=== PATIENT | male | born 1970 | race Caucasian/White ===

== ENCOUNTER 2024-04-27 16:22 | Inpatient (IN) ==
[2024-04-27] MEDS: nitroGLYCERIN DRIP 25,000 MCG/250 ML BTL IV SCH (20:43)
[2024-04-27] MEDS ORDERED: Al Hydrox/Mg Hydrox/Simet LIQ 30 ML UDC PO PRN (21:20)
[2024-04-27] MEDS ORDERED: HYDROcodone/Acetamin 10/325 TAB (NF) PO PRN ×2 (21:36→22:27)
[2024-04-27 22:37] LABS: Calcium 9.4 mg/dL (8.6-10.3); Creatinine, Serum 0.74 mg/dL (0.67-1.17); Magnesium 1.8 mg/dL (1.9-2.7); eGFR CKD-EPI 108.3 (>60)
[2024-04-27] MEDS: Heparin DRIP 25,000 UNITS BAG 25,000 UNITS/250 ML BAG IV SCH (22:46)
[2024-04-27 22:49] LABS: ABS Eosinophils 0.3 10^3/uL (0.0-0.5); ABS Lymphocytes 1.5 10^3/uL (1.0-4.8); ABS Monocytes 0.7 10^3/uL (0.0-1.1); ABS Neutrophils 2.5 10^3/uL (1.5-7.6); ABS Nucleated RBC 0.01 10^3/ul; Eosinophil % 5.2 %; Hematocrit 37.1 % (38-53); Hemoglobin 12.9 g/dL (13.2-16.3); Lymphocyte % 30.4 %; Mean Corpuscular Hemoglobin 31.3 pg (27-33); Mean Corpuscular Hgb Conc 34.9 g/dL (31-36); Mean Corpuscular Volume 89.9 fL (80-97); Mean Platelet Volume 7.8 fL (7.5-11.2); Nucleated Red Blood Cells % 0.1 %/100WBC (0.0-0.8); Platelet Count 181 10^3/uL (150-450); Red Blood Count 4.13 10^6/uL (4.06-5.63); Red Cell Distribution Width 13.7 % (12-17); White Blood Count 4.9 10^3/uL (3.6-10.2)
[2024-04-27] MEDS: Heparin 5000 UNITS/ML 1 mL VIAL IV SCH (22:49)
[2024-04-27] MEDS: Magnesium Sulfate IV 1GM/100ML 1 GM/100 ML BAG IV ONE (23:23)
[2024-04-27 23:50] LABS: High Sensitivity Troponin 1 Hr 4 pg/mL (<20)
[2024-04-28 05:01] LABS: ABS Eosinophils 0.3 10^3/uL (0.0-0.5); ABS Lymphocytes 1.5 10^3/uL (1.0-4.8); ABS Monocytes 0.6 10^3/uL (0.0-1.1); ABS Neutrophils 1.7 10^3/uL (1.5-7.6); Eosinophil % 6.6 %; Hematocrit 36.5 % (38-53); Hemoglobin 12.7 g/dL (13.2-16.3); Lymphocyte % 35.7 %; Mean Corpuscular Hemoglobin 31.4 pg (27-33); Mean Corpuscular Hgb Conc 34.7 g/dL (31-36); Mean Corpuscular Volume 90.5 fL (80-97); Mean Platelet Volume 7.6 fL (7.5-11.2); Nucleated Red Blood Cells % 0.1 %/100WBC (0.0-0.8); Platelet Count 167 10^3/uL (150-450); Red Blood Count 4.03 10^6/uL (4.06-5.63); Red Cell Distribution Width 13.5 % (12-17); White Blood Count 4.2 10^3/uL (3.6-10.2)
[2024-04-28] MEDS: ASA-APAP-CAFFEINE ES (NF) TAB PO SCH (05:33)
[2024-04-28] MEDS: Acetaminophen IV 1 GM/100ML 1,000 MG/100 ML BAG IV PRN (05:33)
[2024-04-28 05:46] LABS: Calcium 9.3 mg/dL (8.6-10.3); Creatinine, Serum 0.67 mg/dL (0.67-1.17); HDL Cholesterol 39.8 mg/dL; Magnesium 1.9 mg/dL (1.9-2.7); Potassium 3.7 mmol/L (3.5-5.0); eGFR CKD-EPI 111.6 (>60)
[2024-04-28] MEDS: Acetaminophen IV 1 GM/100ML 1,000 MG/100 ML BAG IV ONE (06:59)
[2024-04-28] MEDS: Morphine 2 MG/ML SYRINGE IV PRN (07:04)
[2024-04-28] MEDS: Potassium Chlor 20 meq TAB.ER PO ONE (07:58)
[2024-04-28] MEDS: Lactated Ringers 1000 ml BAG 1,000 ML IV ONE (07:59)
[2024-04-28] MEDS: Magnesium Sulfate 2 gm BAG 2 GM/50 ML BAG IVPB ONE (07:59)
[2024-04-28] MEDS ORDERED: Sulfur Hexaflouride MICROSPHR 25 MG VIAL ONE ×2 (08:02→10:53)
[2024-04-28] MEDS: Metoclopramide 5 MG/ML VIAL (10 mg) IV SCH (08:03)
[2024-04-28] MEDS: Sulfur Hexaflouride MICROSPHR 25 MG VIAL IV ONE (08:34)
[2024-04-28 13:01] VITALS: BP 128/88
[2024-04-28] MEDS ORDERED: Enoxaparin 40 MG/0.4 ML SYR SUBCUT SCH (21:00)
== END 2024-04-28 15:00 | disposition home or self-care (01) | DRG 198 ==
LOC: ICU 20:56
PROVIDERS: ADMIT Chiropractor; ATTEND Internal Medicine